=== PATIENT | male | born 1970 | race Caucasian/White ===

== ENCOUNTER → 2016-09-07 | Outpatient (CLI) | payer OTHER ==
[~2016-09-07] MED LIST: LVNIS30 SQ; MELATAB2 PO; MULT-506 PO; OXYSR10 PO; RXC5 PO
== END | disposition home or self-care (01) ==
LOC: C.RDSM 14:50
PROVIDERS: ATTEND Orthopaedic Surgery Sports Medicine
DX: Z98.890 Other specified postprocedural states (principal)

== ENCOUNTER → 2017-03-08 | Outpatient (CLI) | payer OTHER | END | disposition home or self-care (01) | LOC: C.RDSM 15:59 | PROVIDERS: ATTEND Orthopaedic Surgery Sports Medicine | DX: S82.231K Displaced oblique fracture of shaft of right tibia, subsequent encounter for closed fracture with nonunion (principal); X58.XXXD Exposure to other specified factors, subsequent encounter ==

== ENCOUNTER → 2017-12-06 | Outpatient (CLI) | payer OTHER | END | disposition home or self-care (01) | LOC: C.RDSM 09:35 | PROVIDERS: ATTEND Orthopaedic Surgery Sports Medicine | DX: Z98.890 Other specified postprocedural states (principal) ==